=== PATIENT | female | born 1980 | race Caucasian/White ===

== ENCOUNTER 2017-01-30 10:20 | Outpatient (CLI) | payer OTHER ==
--- NOTE | 2017-01-30 12:23 | DIAGNOSTIC IMAGING REPORT ---
PROCEDURE: XR UPPER GI WITH AIR INDICATION: Reflux symptoms with aspiration. Refractory to medical therapy. TECHNIQUE: Double contrast study. Fluoroscopy time, 4.1 minutes; 4180.81 mGy. 26 fluoroscopic images (including cinefluoroscopy). COMPARISON: Comparison is made to upper GI on 12/20/2009. FINDINGS: Small sliding hiatal hernia with moderate gastroesophageal reflux. Esophagus is otherwise normal. Stomach and duodenum are normal. IMPRESSION: 1. Small sliding hiatal hernia. 2. Moderate gastroesophageal reflux. 3. Findings discussed with the patient
== END 2017-01-30 23:00 ==
LOC: XR SRH 10:20
DX: K21.9 Gastro-esophageal reflux disease without esophagitis (principal); K44.9 Diaphragmatic hernia without obstruction or gangrene